=== PATIENT | male | born 1990 | race Caucasian/White ===

== ENCOUNTER 2021-04-21 17:26 | Emergency (ER) | payer OTHER ==
[~2021-04-21] VITALS: Ht 170.2 cm; Wt 79.4 kg
[2021-04-21 18:08] VITALS: BP 111/69
== END 2021-04-21 18:26 | disposition left against medical advice (07) ==
LOC: M.ERS 17:26
DX: R50.9 Fever, unspecified (principal); R11.10 Vomiting, unspecified; R52 Pain, unspecified; Z53.21 Procedure and treatment not carried out due to patient leaving prior to being seen by health care provider